=== PATIENT | female | born 1955 | race Caucasian/White ===

== ENCOUNTER → 2017-10-10 | Outpatient (CLI) | payer BC ==
[~2017-10-10] MED LIST: IOPAMIDOL 370 MG/ML 200 ML INFUS..BTL INJ ONE; SODIUM CHLORIDE 0.9% 50ML 50 ML ONE
[2017-10-10 15:45] LABS: BLOOD UREA NITROGEN 19 mg/dL (7-26); BUN/CREATININE RATIO 20 (6-25); CREATININE, SERUM 0.94 mg/dL (0.57-1.11); EST GLOMERULAR FILTRATION RATE > 60 ML/MIN (60-)
--- NOTE | 2017-10-10 18:50 | Diagnostic Imaging Report ---
PROCEDURE: CT ABDOMEN \T\ PELVIS W/WO CONTRAST TECHNIQUE: The abdomen and pelvis were scanned utilizing a multidetector helical scanner from the diaphragm to the lesser trochanter before and after the IV administration of 100 cc of Isovue 370 and the oral administration of water. Precontrast, arterial, venous and delayed phases were obtained as part of a renal mass protocol. Coronal and sagittal multiplanar reformations were obtained. COMPARISON: [facility], US, US RETROPERITONEAL ( KIDNEY )., 08/08/2017, 14:31. INDICATIONS: LEFT RENAL MASS, LEFT ABDOMINAL PAIN ON AND OFF FOR A FEW WEEKS FINDINGS: LOWER THORAX: Linear opacities in bilateral lower lobes likely represents subsegmental atelectasis. Mild cardiomegaly. HEPATOBILIARY: No focal hepatic lesions. No biliary ductal dilatation. Cholecystectomy clips. SPLEEN: No splenomegaly. 2 splenules are identified. PANCREAS: No focal masses or ductal dilatation. ADRENALS: No adrenal nodules. KIDNEYS/URETERS: 10.9 x 11.5 x 9.9 cm irregularly shaped heterogeneously enhancing mass arising from the superior pole of the left kidney (series 4, image 106, and coronal venous image 79), which results in caudal displacement of the left kidney. The central portion of the lesion and its hypodense on postcontrast exams, suggesting necrosis, with multiple foci of calcification (for example, series 3, images 58, 67, 72). No other renal masses. No hydronephrosis. No right renal or ureteral calculi. Good opacification of the right renal collecting system and left lower pole collecting system, and bilateral ureters, without filling defects, strictures, or extrinsic compressions. PELVIC ORGANS/BLADDER: No focal bladder lesions. Uterus is absent. No adnexal masses. PERITONEUM / RETROPERITONEUM: No free air or fluid. LYMPH NODES: No intra-abdominal, retroperitoneal, pelvic, or inguinal adenopathy. VESSELS: Celiac trunk, superior and inferior mesenteric, and bilateral renal arteries are patent. Portal, superior mesenteric, and splenic veins are patent. No filling defects are identified in the renal veins or IVC. GI TRACT: No bowel dilation or evidence of obstruction. Postoperative changes in the stomach. BONES AND SOFT TISSUES: No aggressive lytic lesions. Degenerative changes in the lumbosacral spine, worse at L5-S1. Visualized soft tissues are unremarkable. IMPRESSION: 1. irregular heterogeneously enhancing 11.5 cm mass arising from the superior pole of the left kidney consistent with RCC (likely clear cell subtype). No adenopathy or vascular invasion. No evidence of metastatic lesions in the visualized lung bases, abdomen, or pelvis. Jonatan Marsh M.D. Dictated by: Jonatan Marsh M.D. on 10/10/2017 at 18:51 Electronically approved by: Jonatan Marsh M.D. on 10/10/2017 at 18:59
== END ==
LOC: CT 14:53
PROVIDERS: ATTEND Urology
DX: D41.00 Neoplasm of uncertain behavior of unspecified kidney (principal)
CPT/HCPCS: 36415; 74178; 82565; 84520; Q9967